=== PATIENT | female | born 1985 | race Caucasian/White ===

== ENCOUNTER 2018-05-25 11:29 | Emergency (ER) | payer OTHER ==
[~2018-05-25] VITALS: Ht 162.6 cm; Wt 118.0 kg
[2018-05-25 11:36] VITALS: BP 136/86
[2018-05-25] MEDS ORDERED: DEXAMETHASONE 10 MG/ML VIAL IM ONE (11:55)
[2018-05-25] MEDS ORDERED: KETOROLAC 60 MG/2 ML VIAL IM ONE (11:55)
[2018-05-25 15:08] VITALS: BP 136/86
== END 2018-05-25 15:09 | disposition home or self-care (01) ==
LOC: MED 11:29
DX: S93.402A Sprain of unspecified ligament of left ankle, initial encounter (principal); X58.XXXA Exposure to other specified factors, initial encounter; Y93.89 Activity, other specified; Y92.89 Other specified places as the place of occurrence of the external cause; Y99.8 Other external cause status
CPT/HCPCS: 73610; 73630; 81025; 96372; 99284; J1100; J1885

== ENCOUNTER 2019-03-17 00:59 | Emergency (ER) | payer OTHER ==
[~2019-03-17] VITALS: Ht 162.6 cm; Wt 113.4 kg
[2019-03-17 01:06] VITALS: BP 139/77
--- NOTE | 2019-03-17 01:09 | NUR ---
PT AMBULATED TO BED 11. STATES UNABLE TO PROVIDE URINE AT THIS TIME.
--- NOTE | 2019-03-17 01:14 | NUR ---
33/F PRESENTS WITH PARTNER, C/O L WRIST GREATER THAN R WRIST PAIN, AND R KNEE PAIN, X2 DAYS. PT STATED THAT SHE WOKE UP WITH THE PAIN. PT DENIES TRAUMA/INJURY. L WRIST WITH LIMITED ROM DUE TO PAIN, +CIRCULATION, TENDER TO TOUCH. R WRIST, +CMS. R KNEE, +CMS, REPORTS PAIN WITH EXTENSION. NO BRUISING/ERYTHEMA/SWELLING NOTED ON SITES. PT AWAKE AND ALERT, SKIN NORMAL COLOR WARM AND DRY, RR EVEN AND UNLABORED. HX APPENDECTOMY, CHOLECYSTECTOMY OTC MOTRIN WITHOUT RELIEF
--- NOTE | 2019-03-17 01:43 | NUR ---
Dr. Montanez examining patient.
--- NOTE | 2019-03-17 01:58 | NUR ---
BILATERAL THUMB SPICA SPLINTS PLACED ON PT R AND L HANDS, FITTED TO SIZE. +CSM
[2019-03-17 02:10] VITALS: BP 128/75
--- NOTE | 2019-03-17 02:10 | NUR ---
Patient discharged with v/s stable. Written and verbal after care instructions given and explained. Patient verbalized understanding. Ambulatory with steady gait. All questions addressed prior to discharge. Advised to follow up with PMD.
== END 2019-03-17 02:10 | disposition home or self-care (01) ==
LOC: MED 00:59
DX: G56.03 Carpal tunnel syndrome, bilateral upper limbs (principal); M94.261 Chondromalacia, right knee; Z90.49 Acquired absence of other specified parts of digestive tract
CPT/HCPCS: 99283

== ENCOUNTER 2019-05-01 22:01 | Emergency (ER) | payer OTHER ==
[~2019-05-01] VITALS: Ht 162.6 cm; Wt 113.4 kg
[2019-05-01 22:18] VITALS: BP 161/88
[2019-05-01] MEDS ORDERED: KETOROLAC 30 MG/ML VIAL IM ONE (23:35)
[2019-05-01] MEDS ORDERED: predniSONE 20 MG TAB PO ONE (23:35)
[2019-05-01] MEDS ORDERED: ACETAMIN/CODEINE 120/12MG-5ML 5 ML UDC PO ONE (23:35)
[2019-05-02 00:24] VITALS: BP 119/69
== END 2019-05-02 00:25 | disposition home or self-care (01) ==
LOC: MED 22:01
DX: J20.9 Acute bronchitis, unspecified (principal); Z90.49 Acquired absence of other specified parts of digestive tract
CPT/HCPCS: 71045; 81025; 96372; 99283; J1885; J7512; Q0092

== ENCOUNTER 2019-05-10 23:34 | Emergency (ER) | payer OTHER ==
[~2019-05-10] VITALS: Ht 162.6 cm; Wt 112.9 kg
[2019-05-10 23:35] VITALS: BP 133/75
--- NOTE | 2019-05-10 23:47 | NUR ---
PT TRIAGED, SENT BACK TO LOBBY AWAITING FOR BED
--- NOTE | 2019-05-11 01:09 | NUR ---
PT AMBULATED TO BED 3
--- NOTE | 2019-05-11 01:36 | NUR ---
33 YO F BIB SELF AND PRESENTS TO ED C/O 02/04 BURNING MIDDLE ABDOMINAL PAIN X 1 DAY WITH NVD X 2 DAYS. ALSO C/O CHILLS AND BODY ACHES AND MENDEZ STARTING TODAY. PT STATES SHE JUST FINISHED ABX FOR BRONCHITIS X 2 DAY AGO. -- PT AWAKE, A/O X 4, CALM, COOPERATIVE. APPEARS TO BE UNCOMFORTABLE. ANSWERS QUESTIONS IN CLEAR, FULL SENTENCES. BEHAVIOR AGE APPROPRIATE. -- SKIN PINK, WARM, DRY. BREATHING EVEN, UNLABORED. -- BOWEL SOUNDS ACTIVE IN ALL 4 QUADRANTS. ABDOMEN SOFT AND ROUND. NO TENDERNESS NOTED. PMH-- APPENDECTOMY 1996, CHOLECYSTECTOMY 2017 RX-- PT FINISHED PREDNISONE, AZITHROMYCIN, STILL TAKING COUGH SYRUP
[2019-05-11] MEDS ORDERED: ONDANSETRON 4 MG/2 ML VIAL IVP ONE (02:35)
[2019-05-11] MEDS ORDERED: DICYCLOMINE HCL LIQUID 20 MG, ALUMINUM HYD/MAG/SIMETHICONE 30 ML, LIDOCAINE VISCOUS 2% ... PO ONE ×3 (02:35)
[2019-05-11] MEDS ORDERED: NACL 0.9% 1,000 ML IV ONE (02:35)
[2019-05-11] MEDS ORDERED: LIDOCAINE VISCOUS 2% 20 ML UDC ONE (02:43)
[2019-05-11] MEDS ORDERED: ALUMINUM HYD/MAG/SIMETHICONE 30 ML UDC ONE (02:43)
--- NOTE | 2019-05-11 02:45 | NUR ---
[facility] IS OUT OF STOCK FROM [employer]. PHYSICIAN NON INVASIVE CARDIOLOGIST, LAURA LAZAR.
[2019-05-11] MEDS ORDERED: DICYCLOMINE HCL LIQUID 10 MG/5 ML UDC ONE (02:50)
[2019-05-11 02:53] LABS: BASOPHILS % (AUTO) 0.3 % (0.0-2.0); EOSINOPHILS # (AUTO) 0.1 K/uL (0-0.4); EOSINOPHILS % (AUTO) 1.2 % (0.0-4.0); HEMATOCRIT 41.3 % (36-48); HEMOGLOBIN 13.7 g/dL (12.0-16.0); LYMPHOCYTES # (AUTO) 2.8 K/uL (2.5-16.5); LYMPHOCYTES % (AUTO) 29.1 % (20.5-51.1); MEAN CORPUSCULAR HEMOGLOBIN 30 pg (27-31); MEAN CORPUSCULAR HGB CONC 33 g/dL (33-37); MEAN CORPUSCULAR VOLUME 90.8 fL (80-94); MONOCYTES # (AUTO) 0.7 K/uL (0.8-1.0); MONOCYTES % (AUTO) 7.6 % (1.7-9.3); PLATELET COUNT (AUTO) 391 K/uL (140-450); RED BLOOD CELL COUNT(AUTO) 4.56 MIL/uL (4.20-5.40); RED CELL DISTRIBUTION WIDTH 13.9 % (11.6-13.7); WHITE BLOOD COUNT (AUTO) 9.7 K/uL (4.8-10.8)
[2019-05-11 02:54] LABS: APPEARANCE,URINE CLEAR (CLEAR); BILIRUBIN,URINE NEGATIVE (NEGATIVE); BLOOD, URINE NEGATIVE (NEGATIVE); COLOR,URINE YELLOW (YELLOW); LEUKOCYTE ESTERASE ,URINE NEGATIVE (NEGATIVE); NITRITE, URINE POSITIVE (NEGATIVE); UGLUCOSE NEGATIVE (NEGATIVE)
--- NOTE | 2019-05-11 02:55 | NUR ---
ONLY 10 MG BENTYL AVAILABLE IN HOSPITAL. DR. KESSLER MADE AWARE. NO CHANGE IN ORDERS.
[2019-05-11 03:05] LABS: ANION GAP 14.9 (8-16); CARBON DIOXIDE 26.1 mmol/L (21-32); CREATININE 0.8 mg/dL (0.6-1.3)
[2019-05-11 03:07] LABS: NEUTROPHILS % (AUTO) 61.8 % (42.2-75.2)
[2019-05-11 03:11] LABS: ALBUMIN 3.5 g/dL (3.4-5.0); TOTAL BILIRUBIN 0.6 mg/dL (0.0-1.0)
[2019-05-11 03:21] LABS: RBC,URINE 0-5 /HPF (0-5); WBC,URINE 0-5 /HPF (0-5)
--- NOTE | 2019-05-11 04:30 | NUR ---
PT STATES MEDICATION HELPED RELIEVE PAIN FOR A LITTLE WHILE BUT NOW IT CAME BACK. REPORTS 01/05 MENDEZ AND BURNING ABDOMINAL PAIN. DR. KESSLER NOTIFIED. NEW ORDERS RECIEVED.
[2019-05-11] MEDS ORDERED: KETOROLAC 30 MG/ML VIAL IVP ONE (04:35)
--- NOTE | 2019-05-11 05:18 | NUR ---
DR. KESSLER REEVALUATING AT BEDSIDE.
[2019-05-11 05:40] VITALS: BP 121/68
--- NOTE | 2019-05-11 05:40 | NUR ---
Patient discharged with v/s stable. Written and verbal after care instructions given and explained. Patient alert, oriented and verbalized understanding of instructions. Ambulatory with steady gait. All questions addressed prior to discharge. ID band removed. Patient advised to follow up with PMD. Rx of Zofran ODT given. Patient educated on indication of medication including possible reaction and side effects. Opportunity to ask questions provided and answered.
== END 2019-05-11 05:40 | disposition home or self-care (01) ==
LOC: MED 23:34
DX: R10.13 Epigastric pain (principal); R11.2 Nausea with vomiting, unspecified; R19.7 Diarrhea, unspecified; R05 Cough
CPT/HCPCS: 36415; 71045; 80053; 81001; 82150; 83690; 84703; 85025; 87086; 96361; 96374; 96375; 99284; J1885; J2405; J7030; Q0092